=== PATIENT | female | born 1950 | race American Indian/Alaskan Native ===

== ENCOUNTER 2017-03-20 11:45 | Emergency (ER) | payer MEDICARE ==
[2017-03-20] MEDS ORDERED: NACL 0.9% 1000 ML 1,000 ML IV ONE (13:20)
[2017-03-20 13:48] LABS: Basophils % (Auto) 1.1 % (0.0-1.8); Eosinophils % (Auto) 3.8 % (0.0-4.3); Hematocrit 43.7 % (30.3-42.9); Hemoglobin 14.3 gm/dl (10.1-14.3); Mean Corpuscular HGB Conc 33 % (30-34); Mean Corpuscular Hemoglobin 27 pg (28-32); Mean Corpuscular Volume 81 fl (79-97); Platelet Count 296 K/mm3 (140-440); Red Blood Count 5.38 M/mm3 (3.65-5.03); Red Cell Distribution Width 15.3 % (13.2-15.2); White Blood Count 9.8 K/mm3 (4.5-11.0)
[2017-03-20 13:57] LABS: INR 0.97 (0.87-1.13)
[2017-03-20 13:58] LABS: Partial Thromboplastin Time 38.5 Sec. (24.2-36.6)
[2017-03-20 14:25] LABS: Alanine Aminotransferase 15 units/L (7-56); Albumin 4.4 g/dL (3.9-5); Albumin/Globulin Ratio 1.3 %; Alkaline Phosphatase 101 units/L (35-129); Anion Gap 19 mmol/L; BUN/Creatinine Ratio 15; Blood Urea Nitrogen 12 mg/dL (7-17); Calcium 9.2 mg/dL (8.4-10.2); Carbon Dioxide 26 mmol/L (22-30); Chloride 105.7 mmol/L (98-107); Glucose 96 mg/dL (65-100); Lipase 34 units/L (13-60); Potassium 4.5 mmol/L (3.6-5.0); Sodium 146 mmol/L (137-145); Total Protein 7.7 g/dL (6.3-8.2)
--- NOTE | 2017-03-20 14:35 | XRay Report ---
ROUTINE CHEST, TWO VIEWS: HISTORY: Cough, hemoptysis. The trachea, heart, mediastinal contour, lung [place] and bony thorax are unremarkable. IMPRESSION: Unremarkable chest x-ray.
[2017-03-20 15:20] VITALS: BP 113/74
--- NOTE | 2017-03-20 16:47 | Emergency Department Report ---
HPI - General Chief Complaint: Upper Respiratory Infection Time Seen by Provider: 03/20/17 16:22 - HPI HPI: This is a 66 year-old female presents to the emergency department with complaint of a one to 2 day history of spitting up blood. She denies any nausea or vomiting, any cough. She denies any abdominal pain, chest pain, back pain. She says she just has some blood that ends up in her mouth and /or throat and then she has to spit it up and even shows a bottle with some of her bloody sputum. He has a past medical history of diabetes, hypertension and hypothyroidism. Her primary care physician is Dr. Zo Casillas. She has taken her regular home medications but no other medications or treatments for her symptoms prior to presentation. No recent travel or sick contacts at home. She is not a tobacco smoker. ED Past Medical Hx - Past Medical History Previous Medical History?: Yes Hx Hypertension: Yes (1955) Hx Diabetes: Yes (2009) Hx Seizures: No Hx Asthma: No - Surgical History Past Surgical History?: Yes Additional Surgical History: Thyroid removed - Social History Smoking Status: Never Smoker Substance Use Type: Prescribed - Medications Home Medications: Home Medications Medication Instructions Recorded Confirmed Last Taken Type Aspirin [Aspirin BABY CHEW TAB] 81 mg PO QDAY 04/17/13 04/17/13 04/13/13 09:00 History Estradiol [Estrace] 2 mg PO QDAY 04/17/13 04/17/13 04/20/13 History Fenofibrate Nanocrystallized 145 mg PO DAILY 04/17/13 04/17/13 04/20/13 History [Tricor] Glimepiride [Amaryl] 1 mg PO DAILY 04/17/13 04/17/13 04/20/13 History Lisinopril [Zestril TAB] 20 mg PO QDAY 04/17/13 04/17/13 04/21/13 09:00 History Omeprazole [PriLOSEC] 20 mg PO QDAY 04/17/13 04/17/13 04/20/13 History Zolpidem [Ambien] 10 mg PO HS 04/17/13 04/17/13 04/20/13 History oxyCODONE /ACETAMINOPHEN [Percocet 1 - 2 tab PO Q4H PRN #30 tablet 04/21/13 Unknown Rx 5/325] ED Review of Systems ROS: Stated complaint: VOMITING UP BLOOD Other details as noted in HPI Comment: All other systems reviewed and negative Constitutional: denies: chills, fever Eyes: denies: eye pain, eye discharge, vision change Respiratory: denies: cough, shortness of breath, wheezing Cardiovascular: denies: chest pain, palpitations Gastrointestinal: denies: abdominal pain, nausea, diarrhea Genitourinary: denies: urgency, dysuria, discharge Musculoskeletal: denies: back pain, joint swelling, arthralgia Skin: denies: rash, lesions Neurological: denies: headache, weakness, paresthesias Physical Exam - Physical Exam Vital Signs: Vital Signs 03/20/17 03/20/17 13:15 15:19 Temperature 98.4 F Pulse Rate 87 62 Respiratory 18 16 Rate Blood Pressure 140/84 Blood Pressure 113/74 [Left] O2 Sat by Pulse 98 97 Oximetry Physical Exam: GENERAL: The patient is well-developed well-nourished. HENT: Normocephalic. Atraumatic. Patient has moist mucous membranes. Oropharynx is clear. I do not see any bleeding to the gums, underneath the tongue or in the posterior pharynx. No blood seen in the bilateral naris. EYES: Extraocular motions are intact. Pupils equal reactive to light bilaterally. NECK: Supple. Trachea is midline. CHEST/LUNGS: Clear to auscultation. There is no respiratory distress noted. HEART/CARDIOVASCULAR: Regular. There is no tachycardia. There is no gallop rub or murmur. ABDOMEN: Abdomen is soft, nontender. Patient has normal bowel sounds. There is no abdominal distention. SKIN: Skin is warm and dry. NEURO: The patient is awake, alert, and oriented. The patient is cooperative. The patient has no focal neurologic deficits. The patient has normal speech. MUSCULOSKELETAL: There is no tenderness or deformity. There is no limitation range of motion. There is no evidence of acute injury. ED Course Vital Signs 03/20/17 03/20/17 13:15 15:19 Temperature 98.4 F Pulse Rate 87 62 Respiratory 18 16 Rate Blood Pressure 140/84 Blood Pressure 113/74 [Left] O2 Sat by Pulse 98 97 Oximetry ED Medical Decision Making - Lab Data Result diagrams: 03/20/17 13:32 03/20/17 13:32 - EKG Data -: EKG Interpreted by Me EKG shows normal: sinus rhythm, axis (left axis deviation), intervals, QRS complexes (left anterior fascicular block), ST-T waves Rate: normal - EKG Data When compared to previous EKG there are: previous EKG unavailable Interpretation: other (left axis deviation, left anterior fascicular block) - Medical Decision Making 66-year-old presents with 1-2 days of spitting up blood, not hematemesis or hemoptysis. Vital signs are stable throughout her ED course. Labs are unremarkable including normal INR for someone not on blood thinners and no anemia and no significant leukocytosis. She denies any chest pain, shortness breath or abdominal pain. For this reason I did not feel that we needed to do significant imaging towards any pulmonary or GI etiology of this bleeding. She has good follow-up with a primary care physician and has been encouraged to see them in the next 1-2 days without fail. I recommended that she stay off the baby aspirin for this time until follow-up with the PCP and to return to the ER if any worsening of her bleeding or any development of other symptoms or any acute distress. Critical Care Time: No Critical care attestation.: If time is entered above; I have spent that time in minutes in the direct care of this critically ill patient, excluding procedure time. ED Disposition Clinical Impression: Spitting up blood Disposition: DC-01 TO HOME OR SELFCARE Is pt being admited?: No Condition: Stable Additional Instructions: You were seen today for your 2 day history of spitting up blood. I recommend holding off on your aspirin for a few days until you are able to see your primary care physician. Follow-up with your primary care physician in the next 1-2 days without fail. Return to the emergency Department with any worsening of her bleeding, any shortness of breath, or any acute distress. Referrals: CONCHIS REDMAN PA [Primary Care Provider] - [facility] Time of Disposition: 18:28
[2017-03-20 18:23] LABS: INR 0.98 (0.87-1.13)
[2017-03-20 18:24] LABS: Partial Thromboplastin Time 38.2 Sec. (24.2-36.6)
== END 2017-03-20 18:50 | disposition home or self-care (01) ==
LOC: ED 11:45
DX: R04.2 Hemoptysis (principal); I10 Essential (primary) hypertension; E11.9 Type 2 diabetes mellitus without complications
CPT/HCPCS: 36415; 71020; 80053; 83690; 85025; 85610; 85730; 86850; 86900; 86901; 93005; 93010